=== PATIENT | female | born 1985 | race Caucasian/White ===

== ENCOUNTER → 2023-02-14 | Outpatient (CLI) | payer OTHER, SELFPAY ==
[2023-02-14 10:04] LABS: Hematocrit 42.7 % (37-47); Hemoglobin 13.9 g/dL (12.0-15.0); Mean Corp Hgb Conc 32.6 g/dL (32-36); Mean Corpuscular Hgb 29.4 pg (27.0-32.0); Mean Corpuscular Volume 90.5 fL (81-99); Platelet Count 232 K/mm3 (150-450); RBC Distribution Width CV 12.6 % (11.6-14.6); Red Blood Count 4.72 M/mm3 (4.2-5.4); White Blood Count 4.4 K/mm3 (4.4-11.0)
[2023-02-14 10:28] LABS: Vitamin B12 622 pg/mL (211-911); Vitamin D,25 Hydroxy 20.8 ng/mL
[2023-02-14 10:34] LABS: ALB/GLOB Ratio 1.1 RATIO (0.9-2.4); AST(SGOT) 15 U/L (15-37); Alanine Aminotransfer ALT/SGPT 18 U/L (13-56); Albumin, Serum 3.8 g/dL (3.2-5.0); Alkaline Phosphatase 39 U/L (45-117); Anion Gap 5 (5-15); BUN 9 mg/dL (7-18); BUN/Creat Ratio 13.2 RATIO (10-20); Calcium,Total 8.6 mg/dL (8.5-10.1); Chloride 107 mmol/L (98-107); Cholesterol 151 mg/dL (200); Creatinine, Serum 0.68 mg/dL (0.55-1.02); EST Glomerular Filtration Rate 103 mL/min (>60); Est Glom Filt Rate - Afr Amer 125 mL/min (>60); Ferritin 35 ng/mL (8-252); Globulin 3.5 g/dL (2.2-4.2); Glucose 89 mg/dL (74-106); High Density Lipoprotein 61 mg/dL; Iron 88 ug/dL (50-170); Magnesium 2.1 mg/dL (1.6-2.6); Potassium 3.7 mmol/L (3.5-5.1); Protein, Total 7.3 g/dL (6.4-8.2); Sodium Level 139 mmol/L (136-145); Thyroid Stim Hormone (TSH) 2.82 uIU/mL (0.358-3.74); Triglycerides 52 mg/dL; Very Low Density Lipoprotein 10 mg/dL (5-40)
== END | disposition home or self-care (01) ==
PROVIDERS: Visit Provider Family Medicine
DX: I47.1 Supraventricular tachycardia (principal); Z13.21 Encounter for screening for nutritional disorder
CPT/HCPCS: 80053; 80061; 82306; 82607; 82728; 83540; 83735; 84443; 85027

== ENCOUNTER → 2023-04-22 | Outpatient (CLI) | payer OTHER, SELFPAY ==
[2023-04-22 10:18] LABS: Absolute Lymphocyte Count 1.26 X10^3/uL (0.83-4.51); Absolute Neutrophil Count 4.1 X10^3/uL (2.0-7.7); Basophil# 0.04 X10^3/uL; Basophil% 0.7 % (0-1); Eosinophil# 0.03 X10^3/uL; Eosinophils% 0.5 % (0-5); Hematocrit 40.7 % (37-47); Hemoglobin 13.5 g/dL (12.0-15.0); Lymphocyte # 1.26 X10^3/ul (0.83-4.51); Lymphocyte % 21.3 % (19-41); Mean Corp Hgb Conc 33.2 g/dL (32-36); Mean Corpuscular Hgb 29.7 pg (27.0-32.0); Mean Corpuscular Volume 89.6 fL (81-99); Mean Platelet Vol. 10.1 fl (6.2-12.0); Monocyte# 0.47 X10^3/uL; Monocyte% 7.9 % (0-10); NRBC Flagged by Analyzer 0 % (0-5); Neutrophil % 69.3 % (47-70); Platelet Count 241 K/mm3 (150-450); RBC Distribution Width CV 13.1 % (11.6-14.6); Red Blood Count 4.54 M/mm3 (4.2-5.4); White Blood Count 5.9 K/mm3 (4.4-11.0)
[2023-04-22 11:31] LABS: HIV - WCH Non-Reactive (Nonreactive); Hepatitis B Surface Antigen Non-Reactive (Nonreactive); Hepatitis C Antibody Non-Reactive (Nonreactive); Rubella IgG Equiv (Nonreactive); Syphilis Antibodies Non-reactive
[2023-04-24 09:07] LABS: Chlamydia By Nucleic Acid AMP Negative (Negative); Gonococcus By Nucleic Acid AMP Negative (Negative)
[2023-04-29 14:10] LABS: HPV APTIMA, High Risk Negative (Negative)
== END | disposition home or self-care (01) ==
PROVIDERS: Referring Provider Advanced Practice Midwife; Visit Provider Advanced Practice Midwife
DX: O09.90 Supervision of high risk pregnancy, unspecified, unspecified trimester (principal); I47.1 Supraventricular tachycardia; O09.529 Supervision of elderly multigravida, unspecified trimester
CPT/HCPCS: 36415; 85025; 86703; 86762; 86780; 86803; 86850; 86900; 86901; 87086; 87088; 87340; 87491; 87591; 87624; 88175; G0145

== ENCOUNTER → 2023-07-18 | Outpatient (CLI) | payer OTHER, SELFPAY | END | disposition home or self-care (01) | LOC: LABSPEC 13:46 | PROVIDERS: Referring Provider Registered Nurse; Visit Provider Registered Nurse | DX: Z34.90 Encounter for supervision of normal pregnancy, unspecified, unspecified trimester (principal); Z3A.00 Weeks of gestation of pregnancy not specified | CPT/HCPCS: 87070; 87205 ==

== ENCOUNTER → 2023-08-16 | Outpatient (CLI) | payer OTHER, SELFPAY ==
[2023-08-16 08:54] LABS: Absolute Lymphocyte Count 1.21 X10^3/uL (0.83-4.51); Absolute Neutrophil Count 4.6 X10^3/uL (2.0-7.7); Basophil# 0.03 X10^3/uL; Basophil% 0.5 % (0-1); Eosinophil# 0.11 X10^3/uL; Eosinophils% 1.7 % (0-5); Hematocrit 34.8 % (37-47); Hemoglobin 11.9 g/dL (12.0-15.0); Lymphocyte # 1.21 X10^3/ul (0.83-4.51); Lymphocyte % 18.3 % (19-41); Mean Corp Hgb Conc 34.2 g/dL (32-36); Mean Corpuscular Hgb 31.6 pg (27.0-32.0); Mean Corpuscular Volume 92.6 fL (81-99); Mean Platelet Vol. 10.2 fl (6.2-12.0); Monocyte# 0.61 X10^3/uL; Monocyte% 9.2 % (0-10); NRBC Flagged by Analyzer 0 % (0-5); Neutrophil # 4.61 X10^3/uL (2.7-7.7); Neutrophil % 69.7 % (47-70); Platelet Count 190 K/mm3 (150-450); RBC Distribution Width CV 12.5 % (11.6-14.6); RBC Distribution Width SD 42.4 fl (35.1-43.9); Red Blood Count 3.76 M/mm3 (4.2-5.4); White Blood Count 6.6 K/mm3 (4.4-11.0)
[2023-08-16 09:06] LABS: Glucose Challenge Gest 1H 50g 99 mg/dL (70-140)
[2023-08-16 10:11] LABS: HIV - WCH Non-Reactive (Nonreactive); Syphilis Antibodies Non-reactive
== END | disposition home or self-care (01) ==
LOC: PAVLAB 08:33
PROVIDERS: Referring Provider Registered Nurse; Visit Provider Registered Nurse
DX: O09.90 Supervision of high risk pregnancy, unspecified, unspecified trimester (principal); Z3A.00 Weeks of gestation of pregnancy not specified
CPT/HCPCS: 36415; 82950; 85025; 86703; 86780

== ENCOUNTER → 2023-08-29 | Outpatient (CLI) | payer OTHER, SELFPAY ==
--- NOTE | 2023-08-29 08:18 | EKG12_ITS ---
Test Reason : PALPITATIONS Blood Pressure : / mmHG Vent. Rate : 099 BPM Atrial Rate : 099 BPM P-R Int : 118 ms QRS Dur : 074 ms QT Int : 354 ms P-R-T Axes : 075 -49 040 degrees QTc Int : 454 ms Normal sinus rhythm Left axis deviation Nonspecific ST abnormality Abnormal ECG Confirmed by FABY CUTLER, RAJI ([id number]), continuity editor RANDY PINK ([id number]) on 08/30/2023 2:43:40 PM Referred By: Glory Limon Confirmed By:RAJI HOBBS MD
== END | disposition home or self-care (01) ==
LOC: PSN 08:17
PROVIDERS: Referring Provider Nurse Practitioner Women's Health; Visit Provider Nurse Practitioner Women's Health
DX: R00.2 Palpitations (principal); I47.10 Supraventricular tachycardia, unspecified
CPT/HCPCS: 93005

== ENCOUNTER → 2023-09-28 | Outpatient (CLI) | payer OTHER, SELFPAY ==
--- NOTE | 2023-09-28 09:53 | ECHOD_ITS ---
Reason For Study: Abn EKG, Hx of SVT Procedure This was a 2D Doppler, Color Flow transthoracic echocardiogram. Exam performed in department. Left Ventricle Normal LV size. Left ventricular systolic function is normal. The estimated ejection fraction is 55 %. No regional wall motion abnormalities noted. Right Ventricle Normal RV size. Normal systolic function. Atria Normal left atrium. Normal right atrium. Mitral Valve Normal mitral valve. Tricuspid Valve Normal tricuspid valve. Aortic Valve Trisinus/trileaflet aortic valve. Pulmonic Valve Normal pulmonic valve. Great Vessels Normal aortic root. The pulmonary artery is normal size. Normal inferior vena cava. Pericardium/Pleural No pericardial effusion. MMode/2D Measurements & Calculations LVIDd: 5.2 cm IVSd: 0.73 cm Ao root diam: 2.7 cm LVIDs: 3.5 cm LVPWd: 0.81 cm RVDd: 2.6 cm FS: 32.2 % LAV(MOD-bp): 32.5 ml LVAd ap4: 24.1 cm2 SV(MOD-sp4): 42.9 ml LAV(MOD-bp) Indexed: 16.6 ml/m2 LVLd ap4: 7.0 cm LAV(MOD-sp2): 28.3 ml EDV(MOD-sp4): 69.6 ml LAV(MOD-sp4): 31.4 ml EDV(sp4-el): 70.3 ml LVAs ap4: 13.4 cm2 LVLs ap4: 5.7 cm ESV(MOD-sp4): 26.7 ml ESV(sp4-el): 26.8 ml EF(MOD-sp4): 61.6 % EF(sp4-el): 61.9 % SV(sp4-el): 43.5 ml LA A4 area: 13.5 cm2 LA dimension(2D): 3.3 cm RA A4 area: 11.8 cm2 TAPSE: 2.2 cm Time Measurements MV dec time: 0.14 sec Doppler Measurements & Calculations MV E max erick: 77.8 cm/sec Lat Peak E' Erick: 19.1 cm/sec Med Peak E' Erick: 10.3 cm/sec MV A max erick: 71.4 cm/sec E/E' lat: 4.1 E/E' med: 7.5 MV E/A: 1.1 Ao V2 max: 118.9 cm/sec LV V1 max: 103.7 cm/sec MV dec slope: 571.6 cm/sec2 Ao max P.7 mmHg LV V1 max P.3 mmHg Ao V2 mean: 87.9 cm/sec Ao mean P.4 mmHg Ao V2 VTI: 20.4 cm PA V2 max: 77.7 cm/sec ECHO/Echo Complete Interpretation Summary Normal LV size. Left ventricular systolic function is normal. The estimated ejection fraction is 55 %. Structurally normal valves. Ordering Physician: Alan Macedo Referring Physician: Alan Macedo Performed By: Emma Cardoso, PETTY, RVT
== END | disposition home or self-care (01) ==
PROVIDERS: Referring Provider Internal Medicine Cardiovascular Disease; Visit Provider Internal Medicine Cardiovascular Disease
DX: I47.10 Supraventricular tachycardia, unspecified (principal)
CPT/HCPCS: 93306

== ENCOUNTER → 2023-10-27 | Outpatient (CLI) | payer OTHER, SELFPAY | END | disposition home or self-care (01) | LOC: LABSPEC 12:24 | PROVIDERS: Referring Provider Obstetrics & Gynecology; Visit Provider Obstetrics & Gynecology | DX: O09.90 Supervision of high risk pregnancy, unspecified, unspecified trimester (principal); Z3A.00 Weeks of gestation of pregnancy not specified | CPT/HCPCS: 87081 ==

== ENCOUNTER → 2023-11-01 | Outpatient (CLI) | payer OTHER, SELFPAY ==
--- NOTE | 2023-11-01 09:35 | US_ITS ---
HISTORY: growth. TECHNIQUE: Transabdominal pelvic ultrasound was performed. 58 images. COMPARISON: None. FINDINGS: INTRAUTERINE GESTATION(s): Single. PRESENTATION: Cephalic. Umbilical cord noted around the neck. HEART MOTION: 155 bpm. PLACENTA: Posterior right lateral, grade 1. No placenta previa. CERVIX: Not well visualized. Appears closed. AMNIOTIC FLUID INDEX (BEJNI): 14.4 cm. Main vertical pocket 6.1 cm. biometry- BIPARIETAL DIAMETER: 9.4 cm, corresponding to 38 weeks 2 days. HEAD CIRCUMFERENCE: 33 cm, corresponding to 37 weeks 4 days. ABDOMINAL CIRCUMFERENCE: 33 cm, corresponding to 36 weeks 6 days. FEMUR LENGTH: 7.2 cm, corresponding to 36 weeks 6 days. ESTIMATED GESTATIONAL AGE: 37 weeks 3 days. ESTIMATED DUE DATE (KAYODE): 11/19/2023. ESTIMATED WEIGHT: 3162 g corresponding to 66th percentile. US/OB Limited With Biometrics IMPRESSION: Single living intrauterine with an estimated gestational age of 37 weeks 3 days. Nuchal cord. Electronically Signed: Emilie Matt MD at 9:15 EST ,
== END | disposition home or self-care (01) ==
LOC: OPUS 09:33
PROVIDERS: Referring Provider Obstetrics & Gynecology; Visit Provider Obstetrics & Gynecology
DX: O09.522 Supervision of elderly multigravida, second trimester (principal); Z3A.00 Weeks of gestation of pregnancy not specified
CPT/HCPCS: 76816

== ENCOUNTER → 2023-11-09 | Outpatient (CLI) | payer OTHER, SELFPAY ==
--- NOTE | 2023-11-09 11:01 | US_ITS ---
STUDY: OBSTETRICAL ULTRASOUND - BIOPHYSICAL PROFILE REASON FOR EXAM: Female, 38 years old AMA with non reassuring NST LMP: February 16, 2023. PRIOR ULTRASOUND: Comparison is made with prior examination dated November 01, 2023. TECHNIQUE: Transabdominal TECHNICAL QUALITY: Adequate. FINDINGS: There is a single intrauterine fetus. The fetus is in a cephalic presentation. There is demonstrated cardiac activity with a heart rate of 159 bpm. There is a normal amniotic fluid volume. The largest amniotic fluid pocket measures 6.7 cm x 5.3 cm. The amniotic fluid index (BENJI) is 14.4 cm. The placenta is right lateral in location and is not low lying. There are Grade 1 placental changes. Age by LMP: 38 weeks, 0 days. KAYODE by LMP: November 23, 2023. The umbilical cord is seen adjacent to the neck. BIOPHYSICAL PROFILE: Breathing Movements (FBM): 2 Gross Body Movements (GBM): 2 Tone (FT): 2 Amniotic Fluid Volume (AFV): 2 TOTAL SCORE: 8 / 8 US/Biophysical Prof W/O Non Stres IMPRESSION: Normal biophysical profile of 8/8. The umbilical cord is seen adjacent to the neck. Electronically Signed: Rick Gonzalez MD at 12:14 [facility] ,
== END | disposition home or self-care (01) ==
LOC: US 11:00
PROVIDERS: Referring Provider Obstetrics & Gynecology; Visit Provider Obstetrics & Gynecology
DX: O09.529 Supervision of elderly multigravida, unspecified trimester (principal); Z3A.00 Weeks of gestation of pregnancy not specified
CPT/HCPCS: 76819

== ENCOUNTER 2023-11-22 11:30 | Inpatient (IN) | payer OTHER, SELFPAY ==
[2023-11-22] VITALS (25 sets, daily range): BP systolic 91–135; BP diastolic 53–81; PULSE 86–162; RESP 16; TEMP 36.9–37; O2SAT 97–99; BMI 25.0
[2023-11-22] MEDS: Lactated Ringers 1,000 ML 200 ML IV (12:18)
--- NOTE | 2023-11-22 12:20 | HP.PCM.OB_ITS ---
HPI - General General Date of Admission: 11/22/23 HPI Narrative ONEIL OVIEDO, is a 38 y/o @ 39 weeks 6 days who presents to L&D with leaking fluid and contractions. The nurse who checked her in said that the head is very low and she is 5 cm dilated. the ROM + test is pending. Plan is to admit her in the meantime due to painful contractions. Maternal Data Information KAYODE Calculator Estimated Delivery Date Method Current WG Current Estimate 11/23/23 Ultrasound #1 39w 6d Other Estimates 12/02/23 LMP (Certain) 38w 4d PFSH PFSH Medical History AMA (advanced maternal age) multigravida 35+ Anxiety Intermittent palpitations Not immune to rubella Supervision of high risk , antepartum SVT (supraventricular tachycardia) Home Medications Lactobacillus acidophilus-Bifidobac.animalis 2.5 billion cell capsule (Daily Probiotic) cap PO 04/22/23 [History Last Taken Unknown] vits 75-iron 28 mg-folic acid 800 mcg-omega3 440 mg oral pack (One Daily ) pkg PO 04/22/23 [History Last Taken Unknown] magnesium 250 mg tablet 250 mg PO DAILY 09/28/23 [History Last Taken Unknown] Allergy/AdvReac Type Severity Reaction Status Date / Time No Known Allergies Allergy Verified 11/16/23 08:50 Family History Grandfather Cancer Bladder CVA (cerebral vascular accident) Grandmother CVA (cerebral vascular accident) Heart disease Mother Corticobasal degeneration, Onset Age: 60 Surgical History H/O cardiac radiofrequency ablation S/P D&C (status post dilation and curettage) S/P hernia repair Social History household members: spouse housing: house number of children: 2 current occupational status: unemployed current occupation: [employer] Smoking Status: Never smoker alcohol intake: never substance use type: does not use seatbelt use: always do you feel safe at home: Yes additional social history: - Cr- [place] History 4 Elective abortions Hx Para 2 Spontaneous abortions Hx # Term Pregnancies Ectopic pregnancies Hx # Pregnancies Multiple births # of living children Past Pregnancies Del. Date Name GA/Weeks Outcome Route Bth Weight Gen Labor Lgth Anesthesia Del Hun Provider WIL 06/28/18 Claire live - full term Female [facility] 08/21/20 Marga live - full term Male Visit Details Expected Delivery Route/Plan Labor Preferences- CB/BF classes: no labor support person: Cr labor intervention preferences: pain management options preferred: plans epidural cut cord/dad catch: : plans PP control planned: discussed NFP discussed possible routes of delivery and associated risks: [] special requests: [] Plans Covid status: unvaccinated Flu vaccine: declines Tdap vaccine: declines Rhogam: NA LARC form signed: [] Problem list reviewed and updated with the most current plan of care details and appropriate orders placed. Relevant counseling for the gestational age provided. Continue routine care and follow up unless otherwise noted in visit notes/problem list details OB Flowsheet Initial Weight: Not Recorded Date -?-?-?-?-?-?-?-?-?-?-?-?- EGA Weight BP Urine Prot -?-?-?-?-?-?-?-?-?-?-?-?- Glucose FHR FuHt Pres Dilation -?-?-?-?-?-?-?-?-?-?-?-?- Effaced St Visit Note 04/22/23 -?-?-?-?-?-?-?-?-?-?-?-?- 9w 2d 145 lb 6 oz 110/72 -?-?-?-?-?-?-?-?-?-?-?-?- 176 -?-?-?-?-?-?-?-?-?-?-?-?- KW-CRL not =LMP. JV scanned. KAYODE changed 05/20/23 -?-?-?-?-?-?--?-?-?-?-?-?- 13w 2d 150 lb 6 oz 124/72 Nega tive -?-?-?-?-?-?-?-?-?-?-?-?- Negative 160 -?-?-?-?-?-?-?-?-?-?-?-?- KW-possible flut ters. no vb/cramping. no concerns 06/21/23 -?-?-?-?-?-?-?-?-?-?-?-?- 17w 6d 153 lb 6 oz 124/68 Nega tive -?-?-?-?-?-?-?-?-?-?-?-?- Negative 159 -?-?-?-?-?-?-?-?-?-?-?-?- -No Vb, crampi ng. Few flutters. Nausea resolved. 07/18/23 -?-?-?-?-?-?-?-?-?-?-?-?- 21w 5d 157 lb 2 oz 106/69 Nega tive -?--?-?-?-?-?-?-?-?-?-?-?- Negative 158 -?-?-?-?-?-?-?-?-?-?-?-?- LC- normal anato my scan. some increased vaginal discharge. genital culture obtained. +flutters. cervix closed visually. no vaginal bleeding. 08/16/23 -?-?-?-?-?-?-?-?-?-?-?-?- 25w 6d 163 lb 2 oz 114/80 Nega tive -?-?-?-?-?-?-?-?-?-?-?-?- Negative 155 -?-?-?-?-?-?-?-?-?-?-?-?- -No VB, LOF. G ood FM. Noting skipping beats with heart palpitations. Not new for her with SVT but more often every few days. EKG ordered. Nl 28wk labs. 09/12/23 -?-?-?-?-?-?-?-?-?-?-?-?- 29w 5d 168 lb 100/62 Negative -?-?-?-?-?-?-?-?-?-?-?-?- Negative 146 -?-?-?-?-?-?-?-?-?-?-?-?- LC-no lof/vb/ctx . good fm. occ skipping beats. has cardiology appt on 09/29. no c/o dizziness, lightheaded, sob/cp. 09/28/23 -?-?-?-?-?-?-?-?-?-?-?-?- 32w 0d 175 lb 4 oz 122/74 Nega tive -?-?-?-?-?-?-?-?-?-?-?-?- Negative 146 32 -?-?-?-?-?-?-?-?-?-?-?-?- Mh-No VB, LOF. G ood FM. Saw Dr Macedo today and echo ok 10/12/23 -?-?-?-?-?-?-?-?-?-?-?-?- 34w 0d 177 lb 9.6 oz 110/73 Ne gative -?-?-?-?-?-?-?-?-?-?-?-?- Negative 150 34 -?-?-?-?-?-?-?-?-?-?-?-?- LC- no vb/ctx/lo f. good fm. 10/27/23 -?-?-?-?-?-?-?-?-?-?-?-?- 36w 1d 178 lb 100/78 Negative -?-?-?-?-?-?-?-?-?-?-?-?- Negative 150 36 Cephalic 1 .5 -?-?-?-?-?-?-?-?-?-?-?-?- 60 -2 SM- no vb lof good fm no regular ctx gbs today 11/01/23 -?-?-?-?-?-?-?-?-?-?-?-?- 36w 6d 179 lb 6 oz 117/79 Nega tive -?-?-?-?-?-?-?-?-?-?-?-?- Negative 145 36 Cephalic -?-?-?-?-?-?-?-?-?-?-?-?- KW-no vb/lof. no regular ctx. good fm. US today 11/09/23 -?-?-?-?-?-?-?-?-?-?-?-?- 38w 0d 181 lb 4 oz 114/76 Nega tive -?-?-?-?-?-?-?-?-?-?-?-?- Negative -?-?-?-?-?-?-?-?-?-?-?-?- JV- US was efrain l but showed a NC and patient is nervous. offered IOL at 39 weeks and declined. NST ordered JV- US was normal but showed a NC and patient is nervous. offered IOL at 39 weeks and declined. NST ordered and shows 10 minutes of moderate variability then minimal to no variability. THere remains to be seen accelerations. BPP ordered. 11/16/23 -?-?-?-?-?-?-?-?-?-?-?-?- 39w 0d 182 lb 104/71 Negative -?-?-?-?-?-?-?-?-?-?-?-?- Negative 140 38 Cephalic -?-?-?-?-?-?-?-?-?-?-?-?- JV- pt declines pelvic exam. us last visit was 07/05 bpp and NC was not seen. ROS Constitutional Constitutional: Denies change in weight, fatigue, fever(s), headache(s), poor appetite or weakness Eyes Eyes: Denies blurry vision, change in vision, seeing flashes or spots in vision ENT HEENT: Denies dizziness, headache(s), loss taste/smell or sore throat Cardiovascular Cardiovascular: Denies chest pain, dizziness, dyspnea, irregular heart rhythm, leg edema, palpitations, rapid heart rate or vomiting Respiratory/Chest Respiratory/Chest: Denies chest tightness, cough, dyspnea or breast pain Gastrointestinal Gastrointestinal: Denies abdominal pain, anorexia, constipation, cramping, diarrhea, hemorrhoids, vomiting or weight changes Genitourinary Genitourinary: Denies dysuria, flank pain, genital lesions, genital pain, urinary frequency or urinary urgency Musculoskeletal Musculoskeletal: Denies back pain, difficulty walking, joint pain, limited range of motion, muscle cramps or numbness Integumentary Integumentary: Denies lesions or unusual bruising Neurologic Neurologic: Denies abnormal movements, abnormal speech, dizziness, numbness, seizure-like activity or syncope Psychiatric Psychiatric: Denies anxiety, behavioral changes, change in appetite, change in libido, cognitive impairment, confusion, depression, difficulty concentrating, hallucinations or suicidal thoughts Endocrine Endocrinology: Denies excessive sweating, polydipsia or polyuria Hematologic/Lymphatic Hematologic/Lymphatic: Denies easy bleeding, easy bruising or lymphadenopathy Allergic/Immunologic Allergic/Immunologic: Denies itchy eyes, lip swelling, seasonal rhinorrhea, rhinitis, throat swelling, tongue swelling, eczemia, wheezing or asthma Vital Signs Vital Signs Vital Signs: Weight Weight: 174 lb 9.698 oz Body Mass Index (BMI) 25.0 Physical Exam Const alert, oriented x3, no apparent distress and healthy appearing General Appearance: cooperative; Negative for anxious HEENT normocephalic Face and Sinus: normal facial exam Eyes EOMs intact bilaterally and no scleral icterus General Eye: normal appearance of both eyes Neck full ROM and supple Lymph Lymphatic: no lymphadenopathy noted Chest Chest: abnormal inspection of the chest Resp normal respiratory effort Effort and Inspection: able to speak in complete sentences Cardio regular rate GI soft to palpation and non-tender Inspection: gravid Palpation: soft; Negative for tender external exam normal Amniotic Fluid: ROM+plus Back/Spine no CVA tenderness Extremity normal to inspection, full ROM and no clubbing, cyanosis or edema General Extremity: Negative for calf tenderness or edema Skin Lesions: no lesions Rashes: no rashes Psych mental status grossly normal Labs Labs Labs: Blood Type A POSITIVE Antibody Screen NEGATIVE Hct 34.8 % (37-47) L Hgb 11.9 g/dL (12.0-15.0) L Obstetrics Ultrasound Syphilis Total Ab Non-reactive Rubella IgG Antibody Equiv (Nonreactive) Hep Bs Antigen Non-Reactive (Nonreactive) Hepatitis C Antibody Non-Reactive (Nonreactive) Chlamydia DNA (MANFRED) Negative (Negative) N.gonorrhoeae DNA (MANFRED) Negative (Negative) HIV 1&2 Antibody Non-Reactive (Nonreactive) Glucose 1 Hr 50 gm 99 mg/dL (70-140) Assessment & Plan (1) Supervision of high risk , antepartum: COMMENT: PRR KAYODE 12/02/23 boy Zia PC Claire, Marga Spouse Cr (2) AMA (advanced maternal age) multigravida 35+: QUALIFIERS: Trimester: second trimester Qualified Code(s): O09.522 - Supervision of elderly multigravida, second trimester COMMENT: growth us 3rd trimester-66% (3) SVT (supraventricular tachycardia): COMMENT: in childhood. ablations in 1998. MRI last year. does get palpitations during . (4) Not immune to rubella: COMMENT: equivocal- offer MMR (5) Anxiety: (6) : QUALIFIERS: Weeks of gestation: 39 weeks Qualified Code(s): Z3A.39 - 39 weeks gestation of COMMENT: GBS Negative, Declines NIPT and carrier screen PLAN: Plan Patient presents IAL, plan expectant management for , pitocin/AROM PRN if needed. Pain management: plans epidural. GBS negative . Management of any complications: none I have reviewed the [facility] and made any clinically relevant updates.
[2023-11-22 12:26] LABS: ROM Internal Control Test YES-OK TO RESULT pt. (Internal QC); ROM Patient Test POSITIVE (Negative); Record Kit Lot#, ROM+ K1374
[2023-11-22 12:32] LABS: Absolute Lymphocyte Count 1.58 X10^3/uL (0.83-4.51); Absolute Neutrophil Count 7.5 X10^3/uL (2.0-7.7); Basophil# 0.02 X10^3/uL; Basophil% 0.2 % (0-1); Eosinophil# 0.03 X10^3/uL; Eosinophils% 0.3 % (0-5); Hematocrit 37.7 % (37-47); Hemoglobin 12.7 g/dL (12.0-15.0); Lymphocyte # 1.58 X10^3/ul (0.83-4.51); Lymphocyte % 16.1 % (19-41); Mean Corp Hgb Conc 33.7 g/dL (32-36); Mean Corpuscular Volume 89.1 fL (81-99); Mean Platelet Vol. 11.1 fl (6.2-12.0); Monocyte% 7.1 % (0-10); NRBC Flagged by Analyzer 0 % (0-5); Neutrophil # 7.45 X10^3/uL (2.7-7.7); Neutrophil % 75.9 % (47-70); Platelet Count 173 K/mm3 (150-450); RBC Distribution Width CV 13.2 % (11.6-14.6); RBC Distribution Width SD 42.9 fl (35.1-43.9); Red Blood Count 4.23 M/mm3 (4.2-5.4); White Blood Count 9.8 K/mm3 (4.4-11.0)
[2023-11-22] MEDS: LACTATED RINGERS 500 ML 999 ML IV (12:40)
[2023-11-22] MEDS: fentaNYL-bupivacaine (epidural) 100 ML BAG EPIDURAL (13:17)
[2023-11-22 13:18] LABS: Syphilis Antibodies Non-reactive
[2023-11-22] MEDS: Oxytocin 10 UNITS/ML Vial IM (14:31)
[2023-11-22] MEDS: Oxytocin 15 Units/NS 250ml 15 UNITS/250 ML IV.SOLN 83 UNITS IV (14:32)
--- NOTE | 2023-11-22 14:36 | OP.PCM_ITS ---
Assessment & Plan (1) Vaginal delivery: COMMENT: KW 39.6 Terry GOULD (2) Supervision of high risk , antepartum: COMMENT: PRR KAYODE 12/02/23 Marga Cavanaugh Spouse Cr (3) AMA (advanced maternal age) multigravida 35+: QUALIFIERS: Trimester: second trimester Qualified Code(s): O09.522 - Supervision of elderly multigravida, second trimester COMMENT: growth us 3rd trimester-66% (4) SVT (supraventricular tachycardia): COMMENT: in childhood. ablations in 1998. MRI last year. does get palpitations during . (5) Not immune to rubella: COMMENT: equivocal- offer MMR (6) Anxiety: (7) : QUALIFIERS: Weeks of gestation: 39 weeks Qualified Code(s): Z3A.39 - 39 weeks gestation of COMMENT: GBS Negative, Declines NIPT and carrier screen Maternal Data Information KAYODE Calculator Estimated Delivery Date Method Current WG Current Estimate 11/23/23 Ultrasound #1 39w 6d Other Estimates 12/02/23 LMP (Certain) 38w 4d Final KAYODE: 11/23/23 Final KAYODE Source: US >20 weeks Gestational age: 39.6 weeks Vaginal Delivery Maternal Presentation Maternal Presentation: Active Labor Maternal Presentation: Progressed well to 10cm dilated and made steady progress with effective maternal pushing. Delivered the head in JUAN presentation. The head was delivered atraumatically and tight nuchal cord was identified unable to reduce and infant somersaulted through cord. The anterior and posterior shoulders delivered without complication followed by the rest of the and the infant was placed on the maternal abdomen. Delayed cord clamping was employed for approximately 5 minutes. Cord was clamped and cut and gentle traction was applied to the cord and the placenta delivered spontaneously. Immediately following, it was noted to be intact with a 3 vessel cord. The perineum and vagina were inspected and noted to have no laceration . EBL was 100cc. Patient and infant tolerated delivery well. Apgars 9/9. Dr De La Rosa notified of vaginal delivery and orders reviewed. Physician agrees with current plan of care. Operative Information Date of Procedure: 11/22/23 Pre-Operative Diagnosis: See AP comments Post-Operative Diagnosis: Same Surgery / Procedure Performed: Spontaneous Vaginal Delivery hand umbrella tipper #1: Sameera Cox Type of Anesthesia: Epidural Estimated Blood Loss: 100 Time of Delivery: 14:20 Findings Presentation: Vertex Amniotic Membrane Rupture Type: Spontaneous Amniotic Fluid Description: Clear Placental Delivery Description: Spontaneous Placenta Disposition: [facility] Cord Vessel Description: 3 Vessels Cord Entanglement: Around neck x 1, tight Infant A Gender: Male (1 minute): 9 (5 minute): 9 Delayed Cord Clamping: Yes Post Vaginal Delivery Medications Given After Delivery: IV Pitocin and IM Pitocin Episiotomy Description: None Laceration: None Complication Complications: None Multi Select Codes Urinary/Genital Urinary/Genital CPT Codes: 43049 Vaginal Delivery [facility]
--- NOTE | 2023-11-22 14:40 | DCINST_ITS ---
Discharge Instructions Diet Discharge Diet: No restrictions Activity Discharge Activity: Return to Normal Activity May resume sexual activity in: 6-8 weeks Dressing / Incision Call your doctor if you observe: Fever of 101 or Higher, Coldness, Increased Pain, Numbness or Tingling, Change in Color, Inability to urinate, Inability to have a bowel movement, Using more than 1 pad per hour, Shortness of breath, Dizziness, Fainting spells, Swelling in the ankles, Chest pain, Increased palpitations (irregular heartbeat), Calf discomfort and Uncontrolled pain Follow Up Care Please Follow Up With: Sameera Cox CNM When: Please call the office to schedule your follow up appointment in 6 weeks. If you had high blood pressure please call to schedule an appointment in 2 weeks. Test Results: Test results from this visit will be discussed in further detail at your follow- up appointment, if applicable. Discharge Plan Admission Admit Date/Time: 11/22/23 11:30 Attending Provider: Sameera Cox Primary Care Provider: Care Physician,No Primary Discharge Orders/Prescriptions Prescriptions: No Action One Daily [id number] mg-mcg-mg combo pack PO Daily Probiotic 2.5 billion cell capsule PO magnesium 250 mg tablet 250 mg PO DAILY Referrals / Follow Up: Care Physician,No Primary [Primary Care Provider] -
[2023-11-22] MEDS: 0.9% Saline Lock 10 ML Syringe IV (17:41)
[2023-11-23 00:26] VITALS: BP 104/69; PULSE 85; RESP 18; TEMP 37; O2SAT 96
[2023-11-23 03:40] VITALS: BP 105/63; PULSE 84; RESP 16; TEMP 37; O2SAT 96
--- NOTE | 2023-11-23 08:09 | PN.OBGYN_ITS ---
Subjective Subjective Patient doing well without complaints. Tolerating PO. Ambulating and voiding without difficulty. Feeding well. Denies chest pain, shortness of breath, calf pain/swelling, fevers, chills, lightheadedness. Objective Data Objective Data Vital Signs: Vital Signs Temp Pulse Resp BP Pulse Ox O2 Del Method 98.6 F 84 16 105/63 96 Room Air 11/23/23 03:40 11/23/23 03:40 11/23/23 03:40 11/23/23 03:40 11/23/23 03:40 11/23/23 03:40 Oxygen Delivery Method Room Air Weight: 174 lb 9.698 oz Body Mass Index (BMI) 25.0 Intake & Output: Intake and Output for Last 24 Hours 11/21/23 11/22/23 11/23/23 23:59 23:59 23:59 Intake Total 1093.33 / 1093.33 Output Total 950 / 950 Balance 143.33 / 143.33 Lab / Micro Data 11/22/23 12:18 Labs: Laboratory Results - last 24 hr 11/22/23 11:45: Vag Amniotic Fld Detect POSITIVE H 11/22/23 12:18: WBC 9.8, RBC 4.23, Hgb 12.7, Hct 37.7, MCV 89.1, MCH 30.0, MCHC 33.7, RDW Std Deviation 42.9, RDW Coeff of Cristobal 13.2, Plt Count 173, MPV 11.1, Immature Gran % (Auto) 0.400, Neut % (Auto) 75.9 H, Lymph % (Auto) 16.1 L, [place] % (Auto) 7.1, Eos % (Auto) 0.3, Baso % (Auto) 0.2, Absolute Neuts (auto) 7.5, Absolute Lymphs (auto) 1.58, Nucleated RBC % 0, Syphilis Total Ab Non-reactive, Blood Type A POSITIVE, Antibody Screen NEGATIVE Physical Exam Const alert and oriented x3 HEENT normocephalic Eyes PERRL Neck full ROM Resp normal respiratory effort GI soft to palpation GI Narrative: FF below U Assessment & Plan (1) Vaginal delivery: COMMENT: KW 39.6 Boy Zia IAL (2) SVT (supraventricular tachycardia): COMMENT: in childhood. ablations in 1998. MRI last year. does get palpitations during . (3) Not immune to rubella: COMMENT: equivocal- offer MMR (4) Anxiety: PLAN: Plan s/p PPD # 1 1. routine post delivery care 2. breast feeding- support given 3. rh positive 4. rubella non immune/offer MMR pp 5. plans home today
[2023-11-23 08:40] VITALS: BP 96/55; PULSE 87; RESP 16; TEMP 36.6; O2SAT 97
[2023-11-23 12:56] VITALS: BP 101/62; PULSE 87; RESP 14
== END 2023-11-23 16:30 | disposition home or self-care (01) | DRG 807 ==
PROVIDERS: Obstetrics & Gynecology; Admitting Provider Advanced Practice Midwife; Referring Provider Advanced Practice Midwife; Visit Provider Advanced Practice Midwife
DX: O42.92 Full-term premature rupture of membranes, unspecified as to length of time between rupture and onset of labor (principal); Z37.0 Single live birth; O69.1XX0 Labor and delivery complicated by cord around neck, with compression, not applicable or unspecified; Z3A.39 39 weeks gestation of pregnancy; Z87.59 Personal history of other complications of pregnancy, childbirth and the puerperium
CPT/HCPCS: 59050; 84112; 85025; 86780; 86850; 86900; 86901; 99221; J7120; A4216; G0378

== ENCOUNTER → 2024-11-15 | Outpatient (CLI) | payer OTHER, SELFPAY ==
[2024-11-15 17:50] LABS: Hematocrit 43.3 % (37-47); Hemoglobin 14.6 g/dL (12.0-15.0); Mean Corp Hgb Conc 33.7 g/dL (32-36); Mean Corpuscular Hgb 29.5 pg (27.0-32.0); Mean Corpuscular Volume 87.5 fL (81-99); Mean Platelet Vol. 10.4 fl (6.2-12.0); Platelet Count 268 K/mm3 (150-450); RBC Distribution Width CV 12.9 % (11.6-14.6); RBC Distribution Width SD 41.1 fl (35.1-43.9); Red Blood Count 4.95 M/mm3 (4.2-5.4); White Blood Count 6.2 K/mm3 (4.4-11.0)
[2024-11-15 18:01] LABS: Anion Gap 3 (5-15); BUN 11 mg/dL (7-18); BUN/Creat Ratio 15.5 RATIO (10-20); Calcium,Total 9.2 mg/dL (8.5-10.1); Chloride 107 mmol/L (98-107); Creatinine, Serum 0.71 mg/dL (0.55-1.02); EST Glomerular Filtration Rate 97 mL/min (>60); Est Glom Filt Rate - Afr Amer 118 mL/min (>60); Glucose 81 mg/dL (74-106); Magnesium 2.3 mg/dL (1.6-2.6); Potassium 3.5 mmol/L (3.5-5.1); Sodium Level 137 mmol/L (136-145)
== END | disposition home or self-care (01) ==
LOC: MTLAB 14:37
PROVIDERS: PCP Family Medicine; Referring Provider Family Medicine; Visit Provider Family Medicine
DX: R00.2 Palpitations (principal)
CPT/HCPCS: 36415; 80048; 83735; 84443; 85027

== ENCOUNTER → 2025-01-07 | Outpatient (CLI) | payer OTHER, SELFPAY ==
[2025-01-07 16:29] LABS: Vitamin B12 695 pg/mL (211-911); Vitamin D,25 Hydroxy 14.8 ng/mL
[2025-01-07 16:51] LABS: Follicle Stimulating Hormone 2.6 mIU/mL; Iron 130 ug/dL (50-170); Luteinizing Hormone 1.9 mIU/mL
[2025-01-12 01:07] LABS: VITAMIN B6 20.7 ug/L (3.4-65.2); Vitamin B1, Thiamine 122.5 nmol/L (66.5-200.0)
== END | disposition home or self-care (01) ==
PROVIDERS: PCP Family Medicine; Referring Provider Family Medicine; Visit Provider Family Medicine
DX: R00.2 Palpitations (principal)
CPT/HCPCS: 36415; 82306; 82533; 82607; 82746; 83001; 83002; 83540; 84207; 84403; 84425

== ENCOUNTER → 2025-10-16 | Outpatient (CLI) | payer BC, SELFPAY ==
[2025-10-16 13:31] LABS: Hematocrit 38.6 % (37-47); Hemoglobin 13.3 g/dL (12.0-15.0); Immature Granulocytes Count 0.010 X10^3/uL (0.0-0.0); Mean Corp Hgb Conc 34.5 g/dL (32-36); Mean Corpuscular Volume 88.1 fL (81-99); Mean Platelet Vol. 10.7 fl (6.2-12.0); NRBC Flagged by Analyzer 0 % (0-5); Platelet Count 257 K/mm3 (150-450); RBC Distribution Width CV 12.7 % (11.6-14.6); RBC Distribution Width SD 41.3 fl (35.1-43.9); Red Blood Count 4.38 M/mm3 (4.2-5.4); White Blood Count 6.4 K/mm3 (4.4-11.0)
[2025-10-16 14:08] LABS: HIV Nonreactive (Nonreactive); Hepatitis B Surface Antigen Nonreactive (Nonreactive); Hepatitis C Antibody Nonreactive (Nonreactive); Syphilis Antibodies Nonreactive (Nonreactive)
[2025-10-18 20:08] LABS: Chlamydia By Nucleic Acid AMP Negative (Negative); Gonococcus By Nucleic Acid AMP Negative (Negative)
== END | disposition home or self-care (01) ==
PROVIDERS: PCP Family Medicine; Visit Provider Student in an Organized Health Care Education/Training Program
DX: O09.90 Supervision of high risk pregnancy, unspecified, unspecified trimester (principal); Z3A.00 Weeks of gestation of pregnancy not specified
CPT/HCPCS: 36415; 85025; 86703; 86762; 86780; 86803; 86850; 86900; 86901; 87086; 87088; 87340; 87491; 87591